=== PATIENT | male | born 1955 | race Caucasian/White ===

== ENCOUNTER 2023-02-14 21:39 | Emergency (ER) | payer MEDICARE, SELFPAY ==
[2023-02-14 22:00] VITALS: BP 150/91; PULSE 72; RESP 17; TEMP 36.7; O2SAT 95
--- NOTE | 2023-02-14 22:45 | ED.GENADULT ---
HPI - General Adult General Chief complaint: Wound/Laceration Stated complaint: i cut my toe when i clipped my toe nail Time Seen by Provider: 02/14/23 22:44 History of Present Illness HPI narrative: for 68-year-old white male who was trimming his toenails and accidentally slipped some of the skin on the end of his Right 3rd toe. it kept bleeding so he came here to be checked out. His last tetanus shot was 2013. he is not on any anticoagulation. Had no other injury. Related Data Home Medications Medication Instructions Recorded Confirmed No Home Medications 02/14/23 02/14/23 Allergies Allergy/AdvReac Type Severity Reaction Status Date / Time No Known Allergies Allergy Verified 02/14/23 21:58 Review of Systems Review of Systems: Unremarkable review of systems Exam Narrative: pleasant, no acute distress, well oriented Const: General: healthy appearing Nutritional Appearance: well nourished Orientation/consciousness: patient oriented x3 HENMT: Head: normal to inspection Eyes: Conjunctivae: conjunctivae normal Pupils: Equal, round and reactive pupils present EOM: EOMs intact bilaterally Resp: Effort & Inspection: normal respiratory effort Skin: General skin exam: normal color Other: patient has about a 5 mm x 2 mm transverse elliptical avulsion of the epidermis and dermis at the tip of the right middle toe without toenail involvement, and without active bleeding at this time. Toe has good capillary refill Neuro: General: patient oriented x3, moves all extremities, no focal motor deficits and CN's II-XI intact bilaterally Extrem: General: normal to inspection Psych: Mental Status: mental status grossly normal Affect: normal affect Attitude: cooperative Course Course Emergency Course: the wound was clean with cleaning agent and sterile saline, dressed with antibiotic ointment and a nonstick dressing by the emergency department RN. Patient was given instructions on using soap and water to clean the wound 2 to 3 times a day, and refreshed with antibiotic ointment and watch for signs of infection and return here if it appears to get back. Vital Signs Vital signs: Vital Signs Temperature 36.7 C 02/14/23 22:00 Pulse Rate 72 02/14/23 22:00 Respiratory Rate 17 02/14/23 22:00 Blood Pressure 150/91 H 02/14/23 22:00 Pulse Oximetry 95 02/14/23 22:00 Oxygen Delivery Room Air 02/14/23 22:00 Temperature 36.7 C 02/14/23 22:00 Pulse Rate 72 02/14/23 22:00 Respiratory Rate 17 02/14/23 22:00 Blood Pressure 150/91 H 02/14/23 22:00 Pulse Oximetry 95 02/14/23 22:00 Oxygen Delivery Room Air 02/14/23 22:00 Medical Decision Making Differential Diagnosis Differential Diagnosis: There is no evidence of vascular compromise, differential does not appear to include at risk tissue other than it is on his feet. Vital Signs Vital Signs: Vital Signs Temperature 36.7 C 02/14/23 22:00 Pulse Rate 72 02/14/23 22:00 Respiratory Rate 17 02/14/23 22:00 Blood Pressure 150/91 H 02/14/23 22:00 Pulse Oximetry 95 02/14/23 22:00 Oxygen Delivery Room Air 02/14/23 22:00 Temperature 36.7 C 02/14/23 22:00 Pulse Rate 72 02/14/23 22:00 Respiratory Rate 17 02/14/23 22:00 Blood Pressure 150/91 H 02/14/23 22:00 Pulse Oximetry 95 02/14/23 22:00 Oxygen Delivery Room Air 02/14/23 22:00 Discharge Plan Discharge Clinical Impression: Avulsion of skin Patient Disposition: Home, Self-Care Condition: Stable Instructions: Skin Avulsion (ED) Additional Instructions: Wash to wound with soap and water to 3 times a day and redressed it with clean antibiotic ointment and a nonstick dressing, watching for evidence of infection appears get infected follow-up with your PCP or return to the department. Prescriptions: No Action No Home Medications Follow-up/Referrals: Javan Ruelas MD [Primary Care Provider] - 1 Week (
--- NOTE | 2023-02-14 23:18 | ED.SKABFB ---
HPI - Skin/Abscess/Foreign Bdy General Chief complaint: Wound/Laceration Stated complaint: i cut my toe when i clipped my toe nail Time Seen by Provider: 02/14/23 22:44 Related Data Home Medications Medication Instructions Recorded Confirmed No Home Medications 02/14/23 02/14/23 Allergies Allergy/AdvReac Type Severity Reaction Status Date / Time No Known Allergies Allergy Verified 02/14/23 21:58 Course Vital Signs Vital signs: Vital Signs Temperature 36.7 C 02/14/23 22:00 Pulse Rate 72 02/14/23 22:00 Respiratory Rate 17 02/14/23 22:00 Blood Pressure 150/91 H 02/14/23 22:00 Pulse Oximetry 95 02/14/23 22:00 Oxygen Delivery Room Air 02/14/23 22:00 Temperature 36.7 C 02/14/23 22:00 Pulse Rate 72 02/14/23 22:00 Respiratory Rate 17 02/14/23 22:00 Blood Pressure 150/91 H 02/14/23 22:00 Pulse Oximetry 95 02/14/23 22:00 Oxygen Delivery Room Air 02/14/23 22:00 Discharge Plan Discharge Clinical Impression: Avulsion of skin Patient Disposition: Home, Self-Care Condition: Stable Instructions: Skin Avulsion (ED) Additional Instructions: Wash to wound with soap and water to 3 times a day and redressed it with clean antibiotic ointment and a nonstick dressing, watching for evidence of infection appears get infected follow-up with your PCP or return to the department. Prescriptions: No Action No Home Medications Follow-up/Referrals: Javan Ruelas MD [Primary Care Provider] - 1 Week ( As needed)
[2023-02-14 23:22] VITALS: BP 138/78; PULSE 68; RESP 16; TEMP 37.3; O2SAT 93
== END 2023-02-14 23:24 | disposition home or self-care (01) ==
PROVIDERS: Emergency Provider Emergency Medicine; PCP Internal Medicine
DX: S91.114A Laceration without foreign body of right lesser toe(s) without damage to nail, initial encounter (principal); W27.8XXA Contact with other nonpowered hand tool, initial encounter
CPT/HCPCS: 99282